=== PATIENT | female | born 1975 | race Caucasian/White ===

== ENCOUNTER → 2018-03-03 | Outpatient (CLI) | payer OTHER | LOC: FIMAGING 08:07 | PROVIDERS: ATTEND Advanced Practice Midwife | DX: O09.512 Supervision of elderly primigravida, second trimester (principal); O28.5 Abnormal chromosomal and genetic finding on antenatal screening of mother; Z3A.19 19 weeks gestation of pregnancy ==

== ENCOUNTER 2018-07-16 08:00 | Inpatient (IN) | payer OTHER ==
[2018-07-16] MEDS ORDERED: EPSOM SALT 454 GM TP PRN (08:30)
[2018-07-16] MEDS ORDERED: OXYTOCIN/RINGERS LACTATE 1,000 ML IV PRN (08:30)
[2018-07-16] MEDS ORDERED: MISOPROSTOL 200 MCG TAB PR PRN (08:30)
[2018-07-16] MEDS ORDERED: LR 1,000 ML IV PRN (08:30)
[2018-07-16] MEDS ORDERED: IBUPROFEN 600 MG TAB PO PRN (08:30)
[2018-07-16] MEDS ORDERED: LIDOCAINE 1% 300 MG/30 ML SDV SC PRN (08:30)
[2018-07-16] MEDS ORDERED: OLIVE OIL 118 ML BTL MISC PRN (08:30)
[2018-07-16 08:42] LABS: PLATELET COUNT 261 10^3/uL (150-400)
--- NOTE | 2018-07-16 09:03 | PDGENHP ---
History and Physical History and Physical: CARE: [facility] HPI: Patient is a 42 yo G 1 P 0 @ 39 weeks who presents to L&D for prolonged rupture of membranes x 30 hours. EDC: July 23, 2018 which is based on LMP of 10/16/17 and confirmed by early Ultrasound at 10 weeks. 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 Review of Systems: Constitutional: Denies any fever, chills, or fatigue HEENT: denies any visual changes, difficulty swallowing, hearing loss Cardiovascular: Denies any chest pain, palpitations, leg swelling Respiratory: denies any cough, wheezing, or shortness of breath GI: Denies any nausea, vomiting, diarrhea, constipation : denies any dysuria, urgency, frequency, vaginal bleeding Musculoskeletal: denies any muscle or bone pain Skin: denies any rashes Neuro: denies any headache, seizures, lightheadedness, dizziness, or loss of consciousness Psychiatric: denies any depression, anxiety, or SI/HI thoughts HISTORY: Previous OB history: nullip Social history: , partner is Cezar, she is self employed Family history: non-contributory Past medical history: denies Past surgical history: denies Medications: PNV, vit D, vit C, cod liver oil, B12, probiotic Allergies (list reaction): [place] LABS: Rh: B + ABS: Neg Rubella: Immune HbsAg: NR HIV: NR VDRL: NR 1hr: 67 GC: Neg Chlamydia: Neg Pap: normal GBS: neg BMI: (prepreg) <30 PHYSICAL EXAM: Constitutional: WN, A&Ox3 HEENT: normocephalic atraumatic, supple Heart: RRR, no murmur Chest: CTA-B Skin: warm, dry, intact Abdomen: Soft, nontender, gravid SVE: 3/80/-2 at center Extremities: trace edema, negative homans sign Neuro: grossly normal Psych: normal affect assessment: FHT baseline 145, +accels, occasional variable decel, moderate variability Contractions: toco q 4-5 min Assessment: 1) 42 yo G 1 P 0 with IUP@ 39 weeks 2) GBS neg 3) Cat 1 FHR tracing 4) Prolonged rupture of membranes x 30 hours Plan: 1) Admit to L&D 2) Anticipate 3) ETTA as desired
[2018-07-16] MEDS ORDERED: AMMONIA AROMATIC 1 EACH AMP IH ONE (09:07)
[2018-07-16] MEDS ORDERED: OLIVE OIL 118 ML BTL MISC ONE (09:07)
[2018-07-16] MEDS ORDERED: LIDOCAINE 1% 300 MG/30 ML SDV ONE (09:07)
[2018-07-16] MEDS ORDERED: TERBUTALINE SULFATE 1 MG/ML VIAL ONE (09:07)
[2018-07-16] MEDS ORDERED: MISOPROSTOL 200 MCG TAB ONE (09:08)
[2018-07-16] MEDS ORDERED: OXYTOCIN 10 UNIT/ML VIAL ONE (09:08)
[2018-07-16] MEDS ORDERED: ACETAMINOPHEN 325 MG TAB PO PRN (10:05)
--- NOTE | 2018-07-16 10:09 | OBDEL ---
Info Type: Vaginal Presentation at Delivery: Vertex L&D Analgesia/Anesthesia Type: None GBS+: No - Care Provider Help Desk Engineer/SENIOR DESIGN ENGINEER: Kat Paniagua - Hospital Course Intrapartum: 07/16/18 10:07 pt arrived at approximately 0800 for augmentation after prolonged ROM. She progressed rapidly to complete upon admission. Indications for Delivery: Spontaneous Labor, SROM Vaginal Delivery - Delivery Provider Delivery Physician/CNM: Noy Bill - Labor and Delivery Onset of Contractions Date: 07/15/18 Onset of Contractions Time: 16:30 Onset of Contractions Type: Spontaneous Rupture of Membranes Date: 07/15/18 Rupture of Membranes Time: 02:00 Rupture of Membranes Type: Spontaneous Amniotic Fluid Color: Meconium Stained Dilation Complete Date: 07/16/18 Dilation Complete Time: 09:00 Placenta Delivery Date: 07/16/18 Placenta Delivery Time: 09:27 Total Hours of Labor: 16 Laceration: 2nd Degree Repair: Other (Specify) (hemostatic, no repair per patient request) Vaginal Sponge Count Correct: Yes Vaginal Needle Count Correct: Yes Vaginal Sweep Performed: Yes EBL: 200 Delivery Events: Other (Specify) (infant delivered rapidly while pt on hands and knees) Data ZOILA: 07/23/18 Gestational Age: 39 week(s) and 0 day(s) [place] Delivery Date: 07/16/18 Delivery Time: 09:20 Sex of : Female Weight (gm): 2045 kg (likely IUGR) Score (1 Min): 7 Score (5 Min): 9 ICD10 Worksheet Patient Problems: Problems Problem Status Onset (normal spontaneous vaginal delivery) Acute Term of female Acute - ICD10 Problem Qualifiers (1) Term of female (2) (normal spontaneous vaginal delivery)
[2018-07-16] MEDS: DOCUSATE SODIUM 100 MG CAP PO PRN (20:13)
--- NOTE | 2018-07-17 07:47 | OBPP ---
Progress Note Assessment/Plan: Assessment: 1. first PP day 2. IUGR 3. Plan: 1. d/c mom home tomorrow 2. support 07/17/18 07:45 Subjective/ Course: 07/17/18 07:46 pain management is effective, baby is breast feeding well. Pt desires d/c home today if possible. Encouraged couple to discuss with pediatric provider. Objective: 07/16/18 08:35 Patient ABO/Rh B POSITIVE 07/16/18 08:35 Temp Pulse Resp BP Pulse Ox 36.6 C 82 16 117/76 94 07/16/18 19:55 07/16/18 19:55 07/16/18 19:55 07/16/18 19:55 07/16/18 19:55 VSS Uterine Position/Fundal Height: At Umbilicus Uterine Tone: Firm
[2018-07-17] MEDS: DOCUSATE SODIUM 100 MG CAP PO PRN (08:58)
[2018-07-17] MEDS: IBUPROFEN 600 MG TAB PO PRN (21:22)
[2018-07-18] MEDS: IBUPROFEN 600 MG TAB PO PRN (06:12)
[2018-07-18] MEDS: DOCUSATE SODIUM 100 MG CAP PO PRN (06:13)
[2018-07-18 08:04] VITALS: BP 138/85
--- NOTE | 2018-07-18 09:34 | OBGCSDC ---
General Delivery Information - General Info : 1 Para: 1 Abortions: 0 Type: Vaginal L&D Analgesia/Anesthesia Type: None Admission Date: 07/16/18 Labs: Patient ABO/Rh B POSITIVE 07/16/18 08:35 Hct 41.7 % (38.0-47.0) 07/16/18 08:35 Temp Pulse Resp BP Pulse Ox 07/18/18 08:04 36.4 C 75 16 138/85 H 94 07/17/18 20:00 36.8 C 82 16 125/83 H 94 - Hospital Course Intrapartum: 07/16/18 10:07 pt arrived at approximately 0800 for augmentation after prolonged ROM. She progressed rapidly to complete upon admission. : 07/17/18 07:46 pain management is effective, baby is breast feeding well. Pt desires d/c home today if possible. Encouraged couple to discuss with pediatric provider. 07/18/18 09:33 Breast feeding well. Denies pain. Voiding and stooling with no difficulty. Vaginal - Delivery Provider Delivery Physician/CNM: Noy Bill - Diagnosis Labor: Spontaneous Rupture of Membranes Type: Spontaneous Amniotic Fluid Color: Meconium Stained Laceration: 2nd Degree Repair: Other (Specify) (hemostatic, no repair per patient request) Delivery Events: Other (Specify) ( delivered rapidly while pt on hands and knees) - Delivery EBL: 200 [place] Data ZOILA: 07/23/18 Gestational Age: 39 week(s) and 2 day(s) [place] Delivery Date: 07/16/18 Delivery Time: 09:20 Sex of : Female [place] Weight (gm): 2045 kg Score (1 Min): 7 Score (5 Min): 9 Discharge Information - Discharge Information Condition: Good
== END 2018-07-18 12:12 | disposition home or self-care (01) | DRG 807 ==
LOC: FLD 08:00 → FOB 15:37
PROVIDERS: ADMIT Advanced Practice Midwife; ATTEND Advanced Practice Midwife
PROC: 10E0XZZ Delivery of Products of Conception, External Approach (ICD-10-PCS; principal; 2018-07-16)
DX: O70.1 Second degree perineal laceration during delivery (principal); Z37.0 Single live birth; Z3A.39 39 weeks gestation of pregnancy
CPT/HCPCS: J2590; J3105